=== PATIENT | female | born 1960 | race Caucasian/White ===

== ENCOUNTER → 2018-07-24 | Emergency (ER) | payer MEDICAID, MEDICARE ==
[~2018-07-24] VITALS: Ht 167.6 cm; Wt 106.1 kg
[~2018-07-24] MED LIST: CLIN150C8 PO; DULO-31 PO; IBUP-1986 PO; METH4TAB81 PO; ketorolac trometh inj. 60 MG/2 ML VIAL IM ONE
[2018-07-24 14:58] LABS: BASOPHILS % (AUTO) 0.4 % (0-1); EOSINOPHILS # (AUTO) 0.3 X10'3 (0-0.9); EOSINOPHILS % (AUTO) 4.7 % (0-6); HEMATOCRIT 38.9 % (35.0-45.0); HEMOGLOBIN 13.2 g/dl (12.0-16.0); LYMPHOCYTES # (AUTO) 2.7 X10'3 (1.1-4.8); LYMPHOCYTES % (AUTO) 44.6 % (21-51); MEAN CORPUSCULAR HEMOGLOBIN 27.4 PG (27.0-31.0); MEAN CORPUSCULAR HGB CONC 33.9 % (33.0-36.5); MEAN CORPUSCULAR VOLUME 80.9 FL (78-98); MEAN PLATELET VOLUME 9.1 FL (7.4-10.4); MONOCYTES # (AUTO) 0.5 X10'3 (0-0.9); MONOCYTES % (AUTO) 7.8 % (2-12); NEUTROPHILS # (AUTO) 2.6 X10'3 (1.8-7.7); NEUTROPHILS % (AUTO) 42.5 % (42-75); PLATELET COUNT 226 X10'3 (140-440); RED CELL DISTRIBUTION WIDTH 13.4 % (11.5-14.5)
[2018-07-24 15:02] LABS: CLARITY,URINE CLEAR (Clear); COLOR,URINE YELLOW (Yellow); GLUCOSE, URINE NEGATIVE (Neg); KETONES,URINE NEGATIVE (Neg); LEUKOCYTE ESTERASE ,URINE SMALL (Neg); NITRITES, URINE NEGATIVE (Neg); OCCULT BLOOD,URINE NEGATIVE (Neg); PROTEIN,URINE NEGATIVE (Neg); UROBILINOGEN,URINE 0.2 E.U/dL (0.2-1.0)
[2018-07-24 15:03] LABS: URINE HCG NEGATIVE (NEG)
[2018-07-24 15:05] LABS: UA COLLECTION TYPE CLN CATCH MIDSTREAM
[2018-07-24 15:07] LABS: INR 0.9 INR; PROTHROMBIN TIME 9.8 SECONDS (9.0-12.0)
[2018-07-24 15:13] LABS: ALANINE AMINOTRANSFERASE 34 U/L (12-78); ALBUMIN 3.5 G/DL (3.4-5.0); ALKALINE PHOSPHATASE 83 IU/L (46-116); ANION GAP 8 (8-16); ASPARTATE AMINO TRANSFERASE 21 U/L (10-37); BILIRUBIN,TOTAL 0.4 MG/DL (0.1-1.0); BLOOD UREA NITROGEN 16 MG/DL (7-18); BUN/CREATININE RATIO 20.8 (6.6-38.0); CHLORIDE 105 MMOL/L (99-107); CREATININE 0.77 MG/DL (0.40-0.90); GLUCOSE 93 MG/DL (70-104); LIPASE 148 U/L (73-393); POTASSIUM 3.9 MMOL/L (3.5-5.1); SODIUM 141 MMOL/L (135-145); TOTAL PROTEIN 7.1 G/DL (6.4-8.2); eGFR 78 ML/MIN
[2018-07-24 15:15] LABS: SQUAMOUS EPITHELIAL CELL,UR FEW /LPF (FEW)
[2018-07-24 15:16] LABS: BACTERIA,URINE NONE SEEN /HPF (Neg); RBC,URINE NONE SEEN /HPF (0-2); WBC,URINE 0-4 /HPF (0-4)
[2018-07-24 17:00] VITALS: BP 134/73
== END | disposition home or self-care (01) ==
LOC: ER 14:20
DX: R10.31 Right lower quadrant pain (principal); R50.9 Fever, unspecified; I10 Essential (primary) hypertension; Z90.710 Acquired absence of both cervix and uterus
CPT/HCPCS: 36415; 74176; 80053; 81001; 81025; 83690; 85025; 85610; 87088; 96372; 99285; J1885

== ENCOUNTER 2018-09-06 15:24 | Emergency (ER) | payer MEDICARE, MEDICAID ==
[~2018-09-06] VITALS: Ht 167.6 cm; Wt 104.5 kg
[~2018-09-06 15:24] MED LIST changes: -ketorolac trometh inj. 60 MG/2 ML VIAL IM ONE
[2018-09-06 16:02] LABS: BASOPHILS % (AUTO) 0.6 % (0-1); EOSINOPHILS # (AUTO) 0.1 X10'3 (0-0.9); EOSINOPHILS % (AUTO) 2.7 % (0-6); HEMATOCRIT 43.9 % (35.0-45.0); HEMOGLOBIN 14.4 g/dl (12.0-16.0); LYMPHOCYTES # (AUTO) 2.2 X10'3 (1.1-4.8); LYMPHOCYTES % (AUTO) 43.6 % (21-51); MEAN CORPUSCULAR HEMOGLOBIN 26.2 PG (27.0-31.0); MEAN CORPUSCULAR HGB CONC 32.9 % (33.0-36.5); MEAN CORPUSCULAR VOLUME 79.6 FL (78-98); MEAN PLATELET VOLUME 8.7 FL (7.4-10.4); MONOCYTES # (AUTO) 0.4 X10'3 (0-0.9); MONOCYTES % (AUTO) 7.3 % (2-12); NEUTROPHILS # (AUTO) 2.3 X10'3 (1.8-7.7); NEUTROPHILS % (AUTO) 45.8 % (42-75); PLATELET COUNT 286 X10'3 (140-440); RED BLOOD COUNT 5.52 X10'6 (4.20-5.60); RED CELL DISTRIBUTION WIDTH 13.9 % (11.5-14.5)
[2018-09-06 16:04] LABS: CLARITY,URINE SLIGHTLY CLOUDY (Clear); GLUCOSE, URINE NEGATIVE (Neg); KETONES,URINE TRACE mg/dl (Neg); LEUKOCYTE ESTERASE ,URINE TRACE (Neg); NITRITES, URINE NEGATIVE (Neg); OCCULT BLOOD,URINE NEGATIVE (Neg); PH,URINE 5.5 (4.8-8.0); PROTEIN,URINE TRACE mg/dl (Neg); URINE HCG NEGATIVE (NEG)
[2018-09-06 16:05] LABS: COLOR,URINE DARK YELLOW (Yellow); UA COLLECTION TYPE CLN CATCH MIDSTREAM
[2018-09-06 16:13] LABS: BACTERIA,URINE FEW /HPF (Neg); CAL OXALATE CRYSTALS 1+ /HPF (NEGATIVE); MUCUS STRANDS MODERATE /LPF (Neg); RBC,URINE NONE SEEN /HPF (0-2); SQUAMOUS EPITHELIAL CELL,UR FEW /LPF (FEW); TRANSITIONAL EPI CELLS,URINE FEW /HPF
[2018-09-06 16:15] LABS: ALANINE AMINOTRANSFERASE 37 U/L (12-78); ALKALINE PHOSPHATASE 86 IU/L (46-116); ANION GAP 12 (8-16); ASPARTATE AMINO TRANSFERASE 29 U/L (10-37); BILIRUBIN,TOTAL 0.4 MG/DL (0.1-1.0); BLOOD UREA NITROGEN 16 MG/DL (7-18); BUN/CREATININE RATIO 21.3 (6.6-38.0); CALCIUM 9.3 MG/DL (8.5-10.1); CHLORIDE 103 MMOL/L (99-107); CREATININE 0.75 MG/DL (0.40-0.90); GLUCOSE 99 MG/DL (70-104); LIPASE 61 U/L (73-393); POTASSIUM 3.7 MMOL/L (3.5-5.1); SODIUM 142 MMOL/L (135-145); TOTAL CARBON DIOXIDE 27.5 MMOL/L (24-32); TOTAL PROTEIN 8.1 G/DL (6.4-8.2); eGFR 80 ML/MIN
[2018-09-06 16:27] LABS: INR 1.1 INR; PROTHROMBIN TIME 10.7 SECONDS (9.0-12.0)
[2018-09-06 16:28] VITALS: BP 135/88
== END 2018-09-06 17:04 | disposition home or self-care (01) ==
LOC: ER 15:24
DX: R10.9 Unspecified abdominal pain (principal); R11.0 Nausea; I10 Essential (primary) hypertension; G89.29 Other chronic pain; Z90.710 Acquired absence of both cervix and uterus; Z98.890 Other specified postprocedural states; Z59.0 Homelessness; Z79.2 Long term (current) use of antibiotics; Z79.899 Other long term (current) drug therapy
CPT/HCPCS: 36415; 80053; 81001; 81025; 83690; 85025; 85610; 87077; 87088; 87186; 99284

== ENCOUNTER 2018-11-19 15:17 | Emergency (ER) | payer MEDICARE, MEDICAID ==
[~2018-11-19] VITALS: Ht 167.6 cm; Wt 97.7 kg
[2018-11-19] MEDS ORDERED: valproate sod inj 500 MG in normal saline 100ml IV soln 95 ML IV ONE (15:40)
[2018-11-19] MEDS ORDERED: proCHLORperazine 10 MG/2 ml inj IV ONE (15:40)
[2018-11-19] MEDS ORDERED: diazepam 5mg tablet PO ONE (15:40)
[2018-11-19 17:27] VITALS: BP 107/69
== END 2018-11-19 17:28 | disposition home or self-care (01) ==
LOC: ER 15:17
DX: G43.909 Migraine, unspecified, not intractable, without status migrainosus (principal); I10 Essential (primary) hypertension; G89.29 Other chronic pain; Z59.0 Homelessness; Z90.710 Acquired absence of both cervix and uterus; Z98.890 Other specified postprocedural states; Z79.899 Other long term (current) drug therapy
CPT/HCPCS: 93005; 96365; 96375; 99284; J0780; J7030

== ENCOUNTER 2019-04-19 12:30 | Emergency (ER) | payer MEDICAID, MEDICARE ==
[~2019-04-19] VITALS: Ht 167.6 cm; Wt 93.0 kg
[2019-04-19 12:52] VITALS: BP 141/88
[2019-04-19] MEDS ORDERED: AMOX-422 PO (13:07)
[2019-04-19] MEDS ORDERED: BENZ-16 PO (13:07)
== END 2019-04-19 13:12 | disposition home or self-care (01) ==
LOC: ER 12:31
DX: J32.0 Chronic maxillary sinusitis (principal); R05 Cough; I10 Essential (primary) hypertension; G89.29 Other chronic pain; Z87.891 Personal history of nicotine dependence; Z59.0 Homelessness; Z90.710 Acquired absence of both cervix and uterus; Z98.890 Other specified postprocedural states; Z79.899 Other long term (current) drug therapy
CPT/HCPCS: 99283

== ENCOUNTER 2021-01-01 13:22 | Emergency (ER) | payer MEDICARE ==
[~2021-01-01] VITALS: Ht 167.6 cm; Wt 88.7 kg
[2021-01-01 13:28] VITALS: BP 129/77
[2021-01-01] MEDS ORDERED: methylPREDNISolone sod succ 125mg/2ml vial IM ONE (13:40)
[2021-01-01] MEDS ORDERED: PRED20TA PO (13:40)
== END 2021-01-01 14:01 | disposition home or self-care (01) ==
LOC: ER 13:23
DX: L23.7 Allergic contact dermatitis due to plants, except food (principal); I10 Essential (primary) hypertension; G89.29 Other chronic pain; Z79.2 Long term (current) use of antibiotics; Z79.899 Other long term (current) drug therapy; Z86.19 Personal history of other infectious and parasitic diseases; Z87.891 Personal history of nicotine dependence; Z90.710 Acquired absence of both cervix and uterus; Z59.0 Homelessness
CPT/HCPCS: 96372; 99283; J2930

== ENCOUNTER 2021-08-05 13:53 | Emergency (ER) | payer MEDICARE ==
[~2021-08-05] VITALS: Ht 167.6 cm; Wt 84.1 kg
[2021-08-05 14:13] VITALS: BP 166/94
[2021-08-05] MEDS ORDERED: PERM60CR19 TOP (15:06)
== END 2021-08-05 15:19 | disposition home or self-care (01) ==
LOC: ER 14:11
DX: B89 Unspecified parasitic disease (principal); I10 Essential (primary) hypertension; G89.29 Other chronic pain; Z86.19 Personal history of other infectious and parasitic diseases; Z90.710 Acquired absence of both cervix and uterus; Z59.0 Homelessness; Z88.8 Allergy status to other drugs, medicaments and biological substances; Z79.2 Long term (current) use of antibiotics; Z79.899 Other long term (current) drug therapy
CPT/HCPCS: 99283

== ENCOUNTER 2021-08-09 14:23 | Emergency (ER) | payer MEDICARE ==
[~2021-08-09] VITALS: Ht 167.6 cm; Wt 81.8 kg
[~2021-08-09 14:23] MED LIST changes: +PERM60CR19 TOP
[2021-08-09] MEDS ORDERED: PERM60CR19 TOP (14:38)
--- NOTE | 2021-08-09 14:55 | NUR ---
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
== END 2021-08-09 15:48 | disposition home or self-care (01) ==
LOC: ER 14:24
DX: F22 Delusional disorders (principal); R45.1 Restlessness and agitation; I10 Essential (primary) hypertension; G89.29 Other chronic pain; F31.9 Bipolar disorder, unspecified; Z86.19 Personal history of other infectious and parasitic diseases; Z90.710 Acquired absence of both cervix and uterus; Z98.890 Other specified postprocedural states; Z59.0 Homelessness; Z88.8 Allergy status to other drugs, medicaments and biological substances; Z79.2 Long term (current) use of antibiotics; Z79.899 Other long term (current) drug therapy
CPT/HCPCS: 99283

== ENCOUNTER 2021-11-23 18:20 | Emergency (ER) | payer MEDICARE ==
[~2021-11-23] VITALS: Ht 167.6 cm; Wt 88.6 kg
[~2021-11-23 18:20] MED LIST changes: -PERM60CR19 TOP
[2021-11-23] MEDS ORDERED: ONDA-103 PO (18:47)
[2021-11-23 18:53] VITALS: BP 163/105
== END 2021-11-23 18:56 | disposition home or self-care (01) ==
LOC: ER 18:21
DX: S06.0X0A Concussion without loss of consciousness, initial encounter (principal); R51.9 Headache, unspecified; M54.2 Cervicalgia; I10 Essential (primary) hypertension; G89.29 Other chronic pain; F31.9 Bipolar disorder, unspecified; Z86.19 Personal history of other infectious and parasitic diseases; Z90.710 Acquired absence of both cervix and uterus; Z98.890 Other specified postprocedural states; Z59.00 Homelessness unspecified; Z88.8 Allergy status to other drugs, medicaments and biological substances; Z79.2 Long term (current) use of antibiotics; Z79.899 Other long term (current) drug therapy; Y08.89XA Assault by other specified means, initial encounter; Y93.89 Activity, other specified; Y92.89 Other specified places as the place of occurrence of the external cause; Y99.8 Other external cause status
CPT/HCPCS: 99283

== ENCOUNTER 2022-10-06 16:23 | Emergency (ER) | payer MEDICARE ==
[~2022-10-06 16:23] MED LIST changes: +ONDA-103 PO
== END 2022-10-06 19:31 | disposition left against medical advice (07) ==
LOC: ER 16:24
DX: M25.561 Pain in right knee (principal); Z53.21 Procedure and treatment not carried out due to patient leaving prior to being seen by health care provider

== ENCOUNTER 2023-11-08 10:31 | Emergency (ER) | payer MEDICARE ==
[~2023-11-08] VITALS: Ht 167.6 cm; Wt 104.4 kg
[~2023-11-08 10:31] MED LIST changes: +CLIN-214 PO; -CLIN150C8 PO
[2023-11-08 10:32] VITALS: BP 168/87; PULSE 118; RESP 18; TEMP 98.1; O2SAT 97
[2023-11-08] MEDS ORDERED: CEPH500C2 PO ×3 (10:38→11:13)
== END 2023-11-08 10:58 | disposition home or self-care (01) ==
LOC: ER 10:32
DX: L02.811 Cutaneous abscess of head [any part, except face] (principal); I10 Essential (primary) hypertension; G89.29 Other chronic pain; Z59.00 Homelessness unspecified; Z79.2 Long term (current) use of antibiotics; Z79.899 Other long term (current) drug therapy; Z88.8 Allergy status to other drugs, medicaments and biological substances
CPT/HCPCS: 99283

== ENCOUNTER 2024-01-02 11:12 | Emergency (ER) | payer MEDICARE ==
[~2024-01-02 11:12] MED LIST changes: +CEPH500C2 PO
[2024-01-03] MEDS ORDERED: CEPH-585 PO (16:01)
[2024-01-03] MEDS ORDERED: SULF1TAB49 PO (16:01)
== END 2024-01-02 13:15 | disposition left against medical advice (07) ==
LOC: ER 11:13
DX: L02.818 Cutaneous abscess of other sites (principal); Z53.21 Procedure and treatment not carried out due to patient leaving prior to being seen by health care provider

== ENCOUNTER 2024-01-03 15:03 | Emergency (ER) | payer MEDICARE ==
[~2024-01-03] VITALS: Ht 167.6 cm; Wt 102.4 kg
[2024-01-03 15:04] VITALS: BP 166/90; PULSE 105; RESP 16; TEMP 97.7; O2SAT 97
[2024-01-03] MEDS ORDERED: SULF1TAB49 PO (16:01)
[2024-01-03] MEDS ORDERED: CEPH-585 PO (16:01)
== END 2024-01-03 16:18 | disposition home or self-care (01) ==
LOC: ER 15:04
DX: L02.412 Cutaneous abscess of left axilla (principal); I10 Essential (primary) hypertension; F31.9 Bipolar disorder, unspecified; Z88.8 Allergy status to other drugs, medicaments and biological substances; Z79.899 Other long term (current) drug therapy
CPT/HCPCS: 99283

== ENCOUNTER 2024-06-02 12:24 | Emergency (ER) | payer MEDICARE ==
[~2024-06-02] VITALS: Ht 167.6 cm; Wt 98.7 kg
[2024-06-02 12:37] VITALS: BP 150/79; PULSE 90; RESP 16; O2SAT 96
[2024-06-02] MEDS ORDERED: CLIN-97 PO (14:03)
[2024-06-02 14:09] VITALS: TEMP 98.9
== END 2024-06-02 14:12 | disposition home or self-care (01) ==
LOC: ER 12:25
DX: L73.2 Hidradenitis suppurativa (principal); I10 Essential (primary) hypertension; F31.9 Bipolar disorder, unspecified; Z88.1 Allergy status to other antibiotic agents; Z79.2 Long term (current) use of antibiotics; Z79.1 Long term (current) use of non-steroidal anti-inflammatories (NSAID); Z79.899 Other long term (current) drug therapy; Z90.710 Acquired absence of both cervix and uterus
CPT/HCPCS: 99283